=== PATIENT | male | born 1950 | race Caucasian/White ===

== ENCOUNTER 2020-06-01 16:25 | Emergency (ER) | payer OTHER, BC ==
[2020-06-01] MEDS ORDERED: FENTANYL CITR 100 MCG/2 ML ONE (17:10)
--- NOTE | 2020-06-01 18:02 | RAD REPORT ---
EXAM DESCRIPTION: CT - Head C Spine Cap Wo Con - 06/01/2020 5:39 pm CLINICAL HISTORY: neck and back pain COMPARISON: None TECHNIQUE: Axial [address] head images were obtained. Axial [address] cervical spine images were obtain ed with sagittal and coronal reconstruction images reviewed. Axial 5 mm images of the chest, abdomen and pelvis were obtained. All CT scans are performed using dose optimization technique as appropriate and may include automated exposure control or mA/KV adjustment according to patient size. FINDINGS: No intracranial hemorrhage, mass or edema. No midline shift or abnormal fluid collection. Mastoid air cells and paranasal sinuses are clear. No skull fracture. Atrophy and chronic ischemic c hanges are minimal. Ventricles are normal in size. Cervical bodies are normal in height. There is very slight retrolisthesis of C5 on C6. Severe C5-6 di sc degenerative change and spurring changes. Degenerative sclerotic changes are present in C5 and C6 abutting the disc level. No fracture or acute bone finding.No other significant disc space narrowing. No prevertebral soft tissue thickening or paraspinal mass.Central canal detail is inherently limited on CT imaging.Facet joint degenerative changes are present causing left foraminal encroachment at C3- 4 and on the right at C4-5. Significant bilateral bony foraminal encroachment at C5-6 where there is also central spinal stenosis. CT chest shows no pneumothorax, pulmonary contusion or pleural fluid collection. No mediastinal hem atoma and the aorta and pulmonary arteries are unremarkable. No chest will mass or abnormal axillary finding. No displaced rib fracture or other significant bony finding. Patient has multiple calcified and noncalcified pleural plaques and small subpleural pulmonary nodules. No one large dominant mass. No acute infiltrate. Patient has very pronounced fatty infiltration of the liver. No acute injury to the liver, spleen, pa ncreas or kidneys. Gallbladder and biliary tree are unremarkable. No acute bowel injury. Urinary blad galilea wall appears thickened but the bladder is too contracted to allow for an accurate assessment. No free air, free fluid or pneumatosis. Small to moderate-sized left inguinal hernia is present. No mass or bulky lymphadenopathy. Degenerative changes are present throughout the thoracic spine with bridging ossification spanning T4 - T11. Advanced degenerative change present at the T11-12 disc level. 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 There is minimal anterior subluxation of L5 with advanced L5-S1 degenerative d isc disease. Acute fracture is present in the superior endplate of L1. Approximately 20 degree wedge compression deformity is present. The posterior wall height is preserved. No posterior wall or salon designer ior element involvement identified. No paraspinal mass. Remaining lumbar vertebrae are normal in heig ht. No sacral ala fracture identified. Facet joint degenerative changes are present. No sacrum or coccyx abnormality. IMPRESSION: Approximately 20% acute wedge compression fracture of the L1 vertebral body. Posterior w all height is preserved. No posterior wall, pedicle or posterior element involvement identified. No hemorrhage, edema or acute intracranial finding identifiable. Advanced cervical spine degenerative changes are present as detailed. No fracture or acute cervical s pine finding seen. No acute traumatic injury to the chest. Calcified and noncalcified pleural plaques and small subpleur al pulmonary nodules can be monitored with re-evaluation in 6 months. No acute traumatic injury to the solid abdominal visceral or bowel. Patient has diffuse fatty infiltr ation of the liver. Additional nonacute findings detailed in the body of the report.
--- NOTE | 2020-06-01 18:41 | ER ---
Nurse's Notes [facility] Name: Marcus Collado Age: 69 yrs Sex: Male : 1950 Arrival Date: 06/01/2020 Time: 16:28 Bed 8 Private MD: Diagnosis: Wedge compression fracture of first lumbar vertebra;Pain in elbow-bilateral from fall;Pain in right wrist-from fall Presentation: 06/01 16:37 Chief complaint: Patient states: Fell 9 feet off of step ladder onto buttocks 45 ss minutes ago. Pt reports he fell onto plywood floor. C/o bilateral elbow pain, upper back pain and pain to buttocks. PT was ambulatory to ER. Care prior to arrival: None. Mechanism of Injury: Fall from ladder approximately 9 feet. Trauma event details: Injury occurred in the [facility], Injury occurred: at home. Injury occurred: June 01, 2020. 16:37 Acuity: JAMISON 2 ss 16:37 Method Of Arrival: Ambulatory ss 16:40 Coronavirus screen: Client denies travel out of the [place] in the last 14 days. At this ss time, the client does not indicate any symptoms associated with coronavirus-19. Ebola Screen: Patient denies exposure to infectious person. Patient denies travel to an Ebola-affected area in the 21 days before illness onset. Initial Sepsis Screen: Does the patient meet any 2 criteria? No. Patient's initial sepsis screen is negative. Does the patient have a suspected source of infection? No. Patient's initial sepsis screen is negative. Risk Assessment: Do you want to hurt yourself or someone else? Patient reports no desire to harm self or others. Onset of symptoms was June 01, 2020. Trauma Activation: Not Applicable Physician: ED Physician; Name: ; Notified At: ; Arrived At: Physician: General Surgeon; Name: ; Notified At: ; Arrived At: Physician: Radiology; Name: ; Notified At: ; Arrived At: Physician: Respiratory; Name: ; Notified At: ; Arrived At: Physician: Lab; Name: ; Notified At: ; Arrived At: Historical: - Allergies: 16:41 PENICILLINS; ss - Immunization history: Last tetanus immunization: unknown. - Social history:: Smoking status: Patient denies any tobacco usage or history of. Screenin:37 Abuse screen: Denies threats or abuse. Denies injuries from another. Tuberculosis ss screening: Never had TB. 17:20 Nutritional screening: No deficits noted. Fall Risk None identified. sv Primary Survey: 16:37 NO uncontrolled hemorrhage observed. A: The patient is alert. Airway: patent. ss Breathing/Chest: Respiratory pattern: regular, Respiratory effort: spontaneous, unlabored, Breath sounds: clear, bilaterally. Chest inspection: symmetrical rise and fall of the chest. Circulation: Pulses: palpable right radial artery, right posterior tibial artery, left radial artery and left posterior tibial artery. Skin color: pink, Skin temperature: warm. Disability Alert. Exposure/Environment: There is no evidence of uncontrolled external bleeding. 17:21 Reassessment Airway Airway Patent Oxygen No O2 Oral cavity Clear Trachea Midline sv Breathing/Chest Respiratory pattern Regular Respiratory effort Spontaneous Unlabored Chest inspection Symmetrical Circulation Pulses Palpable Color Sunsites Temperature Warm Dry Disability Alert. Secondary Survey: 17:00 HEENT: No deficits noted. Gastrointestinal: No deficits noted. : No deficits noted. hb Musculoskeletal: Reports pain in bilateral elbows, right wrist, back, coccyx. 17:00 HEENT: No deficits noted. Gastrointestinal: No deficits noted. : No deficits noted. sv No signs and/or symptoms were reported regarding the genitourinary system. Musculoskeletal: Reports pain in dorsal aspect of right wrist and left and right elbow. Assessment: 17:02 General: Appears in no apparent distress. uncomfortable, Behavior is calm, cooperative. hb Pain: Pain currently is 9 out of 10 on a pain scale. Neuro: Level of Consciousness is awake, alert, obeys commands, Oriented to person, place, time, situation. EENT: No signs and/or symptoms were reported regarding the EENT system. Cardiovascular: Capillary refill < 3 seconds Patient's skin is warm and dry. Pulses are 3+ in right radial artery, right dorsalis pedis artery, left radial artery and left dorsalis pedis artery. Respiratory: Airway is patent Respiratory effort is even, unlabored, Respiratory pattern is regular, symmetrical, Breath sounds are clear bilaterally. GI: No deficits noted. No signs and/or symptoms were reported involving the gastrointestinal system. : No deficits noted. No signs and/or symptoms were reported regarding the genitourinary system. Derm: Skin is pink, warm \T\ dry. Musculoskeletal: Reports pain in bilateral elbows, right wrist, back, and coccyx. 18:00 Reassessment: Patient appears in no apparent distress at this time. Patient and/or hb family updated on plan of care and expected duration. Pain level reassessed. Patient is alert, oriented x 3, equal unlabored respirations, skin warm/dry/pink. Vital Signs: 16:37 BP 150 / 86; Pulse 78; Resp 17; Temp 98.6(TE); Pulse Ox 99% on R/A; Weight 90.72 kg; ss Height 5 ft. 11 in. (180.34 cm); Pain 9/10; 17:21 BP 139 / 91; Pulse 78; Resp 15; Pulse Ox 100% on R/A; hb 17:45 BP 132 / 94; Pulse 68; Resp 16; Pulse Ox 100% ; sv 18:30 BP 132 / 85; Pulse 71; Resp 16; Pulse Ox 100% ; sv 16:37 Body Mass Index 27.89 (90.72 kg, 180.34 cm) ss [place] Coma Score: 16:37 Eye Response: spontaneous(4). Verbal Response: oriented(5). Motor Response: obeys ss commands(6). Total: 15. Trauma Score (Adult): 16:37 Eye Response: spontaneous(1); Verbal Response: oriented(1); Motor Response: obeys ss commands(2); Systolic BP: > 89 mm Hg(4); Respiratory Rate: 10 to 29 per min(4); [place] Score: 15; Trauma Score: 12 17:21 Eye Response: spontaneous(1); Verbal Response: oriented(1); Motor Response: obeys hb commands(2); Systolic BP: > 89 mm Hg(4); Respiratory Rate: 10 to 29 per min(4); [place] Score: 15; Trauma Score: 12 18:15 Eye Response: spontaneous(1); Verbal Response: oriented(1); Motor Response: obeys hb commands(2); Systolic BP: > 89 mm Hg(4); Respiratory Rate: 10 to 29 per min(4); [place] Score: 15; Trauma Score: 12 ED Course: 16:28 Patient arrived in ED. ds1 16:37 Patient has correct armband on for positive identification. Bed in low position. Call ss light in reach. 16:37 Patient maintains SpO2 saturation greater than 95% on room air. ss 16:39 Triage completed. ss 16:41 Arm band placed on right wrist. ss 16:44 Oleksandr Camarillo PA is PHCP. cp 16:44 Byron Morales MD is Attending Physician. cp 16:50 Thermoregulation: warm blanket given to patient. hb 16:56 Laney Kelly RN is Primary Nurse. sv 17:04 Inserted saline lock: 20 gauge in left antecubital area, using aseptic technique. Blood sv collected. Flushed left antecubital with 5 ml normal saline. 17:[address] Scan. sv 17:39 CT Traumagram (Head C Spine CAP wo con): fall from ladder In Process Unspecified. EDMS 18:25 XRAY Elbow LEFT 3 view In Process Unspecified. EDMS 18:25 XRAY Elbow RIGHT 3 view In Process Unspecified. EDMS 18:25 XRAY Wrist RIGHT 3 view In Process Unspecified. EDMS 18:40 Ryan Conrad MD is Referral Physician. cp 19:10 Primary Nurse role handed off by Laney Kelly RN sv Administered Medications: 16:57 CANCELLED (Physician Discretion): Hydrocodone-Acetaminophen (7.5 mg-325 mg) 1 tabs PO sv once; RASS on ADMIN: Combtv4, Very Agttd3, Agttd2, Rstlss1, AlertClm0, Drwsy-1, Lt Sdtn-2, Mod Sdtn-3, Dp Sdtn-4, UnArsble-5 17:04 Drug: fentaNYL (PF) 25 mcg {Note: rass1.} Route: IVP; Site: left antecubital; sv 18:00 Follow up: Response: No adverse reaction; RASS: Alert and Calm (0) sv 18:42 Drug: HYDROcodone-acetaminophen 10 mg-325 mg 1 tabs Route: PO; hb Intake: 17:00 PO: 0ml; Total: 0ml. hb Outcome: 18:41 Discharge ordered by MD. cp 19:22 Patient left the ED. bb Signatures: Dispatcher [employer] EDMS Laney Kelly RN RN Jany Quesada ds1 Angi Marino RN RN bb Smirch, Shelby, RN RN ss Page, Corey, PA PA cp Baxter, Heather, RN RN hb Corrections: (The following items were deleted from the chart) 17:05 17:04 fentaNYL (PF) 25 mcg IVP in left antecubital sv sv
--- NOTE | 2020-06-01 18:41 | EDPHYS ---
Physician Documentation [facility] Name: Marcus Collado Age: 69 yrs Sex: Male : 1950 Arrival Date: 06/01/2020 Time: 16:28 Bed 8 Private MD: ED Physician Byron Morales HPI: 06/01 17:11 This 69 yrs old Male presents to ER via Ambulatory with complaints of Fall cp Injury - 10 Ft. 17:11 Details of fall: The patient fell from a height, from a ladder, approximately 10 feet, cp and struck wood glendy. Onset: The symptoms/episode began/occurred 1 hour(s) ago. Associated injuries: The patient sustained neck injury, pain, upper back injury, pain, injury to the low back, pain. Patient denies striking head. Reports fall from ladder directly onto buttocks onto wooden floor. Reports striking bilateral elbows on floor. Historical: - Allergies: 16:41 PENICILLINS; ss - Immunization history: Last tetanus immunization: unknown. - Social history:: Smoking status: Patient denies any tobacco usage or history of. ROS: 17:13 Constitutional: Negative for fever. cp 17:13 Neck: Positive for pain with movement, pain at rest, tenderness. 17:13 Respiratory: Negative for shortness of breath, wheezing. 17:13 Abdomen/GI: Negative for abdominal pain, nausea, vomiting, and diarrhea. 17:13 Back: Positive for pain at rest, pain with movement, of the thoracic area and lumbar area. 17:13 MS/extremity: Positive for pain, of the right elbow and right wrist and left elbow, Negative for decreased range of motion, deformity, paresthesias. 17:13 Neuro: Negative for altered mental status, headache, loss of consciousness, syncope. 17:13 All other systems are negative. Exam: 17:14 Head/Face: Normocephalic, atraumatic. cp 17:14 Constitutional: The patient appears in no acute distress, alert, awake, non-diaphoretic, non-toxic, well developed, well nourished, uncomfortable. 17:14 Eyes: Periorbital structures: appear normal, Conjunctiva: normal, no exudate, no injection, Sclera: no appreciated abnormality, Lids and lashes: appear normal, bilaterally. 17:14 ENT: External ear(s): are unremarkable, Nose: is normal, Mouth: Lips: moist, Oral mucosa: moist, Posterior pharynx: is normal, airway is patent, no erythema, no exudate. 17:14 Neck: C-spine: C-collar placed in ED. 17:14 Chest/axilla: Inspection: normal, Palpation: is normal, no crepitus, no tenderness. 17:14 Cardiovascular: Rate: normal, Rhythm: regular. 17:14 Respiratory: the patient does not display signs of respiratory distress, Respirations: normal, no use of accessory muscles, no retractions, labored breathing, is not present, Breath sounds: are clear throughout, no decreased breath sounds. 17:14 Abdomen/GI: Inspection: abdomen appears normal, Palpation: abdomen is soft and non-tender, in all quadrants. 17:14 Back: pain, that is moderate, of the thoracic area and lumbar area, ROM is painful, with all movement, Straight leg raises: of both lower extremities does not illicit pain. 17:15 Musculoskeletal/extremity: Extremities: grossly normal except: noted in the right cp elbow: pain, tenderness, There is no evidence of decreased ROM, deformity, noted in the right wrist: pain, tenderness, no evidence of decreased ROM, deformity, noted in the left elbow: pain, tenderness, no evidence of decreased ROM, deformity. 17:15 Neuro: Orientation: to person, place \T\ time. Mentation: is normal, Motor: moves all fours, strength is normal, Sensation: is normal. Vital Signs: 16:37 BP 150 / 86; Pulse 78; Resp 17; Temp 98.6(TE); Pulse Ox 99% on R/A; Weight 90.72 kg; ss Height 5 ft. 11 in. (180.34 cm); Pain 9/10; 17:21 BP 139 / 91; Pulse 78; Resp 15; Pulse Ox 100% on R/A; hb 17:45 BP 132 / 94; Pulse 68; Resp 16; Pulse Ox 100% ; sv 18:30 BP 132 / 85; Pulse 71; Resp 16; Pulse Ox 100% ; sv 16:37 Body Mass Index 27.89 (90.72 kg, 180.34 cm) [place] Coma Score: 16:37 Eye Response: spontaneous(4). Verbal Response: oriented(5). Motor Response: obeys ss commands(6). Total: 15. Trauma Score (Adult): 16:37 Eye Response: spontaneous(1); Verbal Response: oriented(1); Motor Response: obeys ss commands(2); Systolic BP: > 89 mm Hg(4); Respiratory Rate: 10 to 29 per min(4); [place] Score: 15; Trauma Score: 12 17:21 Eye Response: spontaneous(1); Verbal Response: oriented(1); Motor Response: obeys hb commands(2); Systolic BP: > 89 mm Hg(4); Respiratory Rate: 10 to 29 per min(4); [place] Score: 15; Trauma Score: 12 18:15 Eye Response: spontaneous(1); Verbal Response: oriented(1); Motor Response: obeys hb commands(2); Systolic BP: > 89 mm Hg(4); Respiratory Rate: 10 to 29 per min(4); [place] Score: 15; Trauma Score: 12 MDM: 16:50 Patient medically screened. cp 17:00 Differential diagnosis: closed head injury, contusion, fracture, multiple trauma. cp 18:40 Data reviewed: vital signs, nurses notes, radiologic studies, CT scan, plain films, I cp have discussed the patient's presentation/case with the attending Emergency Department Physician; and as a result, I will discharge patient. 18:41 Counseling: I had a detailed discussion with the patient and/or guardian regarding: the cp historical points, exam findings, and any diagnostic results supporting the discharge/admit diagnosis, radiology results, to return to the emergency department if symptoms worsen or persist or if there are any questions or concerns that arise at home. 18:41 Response to treatment: Pain improved. Patient ambulatory in ED. Will discharge to home cp for continued monitoring. 06/01 16:57 Order name: CT Traumagram (Head C Spine CAP wo con): fall from ladder; Complete Time: cp 18:17 06/01 17:03 Order name: XRAY Elbow LEFT 3 view cp 06/01 17:03 Order name: XRAY Elbow RIGHT 3 view cp 06/01 17:03 Order name: XRAY Wrist RIGHT 3 view cp 06/01 18:42 Order name: Sling: left elbow pain; Complete Time: 19:20 cp 06/01 18:42 Order name: Splint - Wrist: right; Complete Time: 19:20 cp Administered Medications: 16:57 CANCELLED (Physician Discretion): Hydrocodone-Acetaminophen (7.5 mg-325 mg) 1 tabs PO sv once; RASS on ADMIN: Combtv4, Very Agttd3, Agttd2, Rstlss1, AlertClm0, Drwsy-1, Lt Sdtn-2, Mod Sdtn-3, Dp Sdtn-4, UnArsble-5 17:04 Drug: fentaNYL (PF) 25 mcg {Note: rass1.} Route: IVP; Site: left antecubital; sv 18:00 Follow up: Response: No adverse reaction; RASS: Alert and Calm (0) sv 18:42 Drug: HYDROcodone-acetaminophen 10 mg-325 mg 1 tabs Route: PO; hb Disposition: 19:00 Chart complete. cp Disposition: 06/01/20 18:41 Discharged to Home. Impression: Wedge compression fracture of first lumbar vertebra, Pain in elbow - bilateral from fall, Pain in right wrist - from fall. - Condition is Stable. - Discharge Instructions: Joint Pain, Spinal Compression Fracture, Wrist Pain. - Prescriptions for Tylenol- Codeine #3 300-30 mg Oral Tablet - take 2 tablet by ORAL route every 6 hours As needed; 30 tablet. - Medication Reconciliation Form, Thank You Letter, Antibiotic Education, Prescription Opioid Use form. - Follow up: Private Physician; When: 2 - 3 days; Reason: Recheck today's complaints. Follow up: Ryan Conrad MD; When: 2 - 3 days; Reason: lumbar compression fracture. - Problem is new. - Symptoms have improved. Signatures: Dispatcher [employer] Laney Castro RN RN sv Ballard, Brenda, RN RN bb Smirch, Shelby, RN RN ss Page, Corey, PA PA cp Zayra Barnes RN RN hb Corrections: (The following items were deleted from the chart) 16:57 16:53 Hydrocodone-Acetaminophen (7.5 mg-325 mg) 1 tabs PO once; RASS on ADMIN: Combtv4, sv Very Agttd3, Agttd2, Rstlss1, AlertClm0, Drwsy-1, Lt Sdtn-2, Mod Sdtn-3, Dp Sdtn-4, UnArsble-5 ordered. cp 19:22 18:41 06/01/2020 18:41 Discharged to Home. Impression: Wedge compression fracture of bb first lumbar vertebra; Pain in elbow - bilateral from fall; Pain in right wrist - from fall. Condition is Stable. Forms are Medication Reconciliation Form, Thank You Letter, Antibiotic Education, Prescription Opioid Use. Follow up: Private Physician; When: 2 - 3 days; Reason: Recheck today's complaints. Follow up: Ryan Conrad; When: 2 - 3 days; Reason: lumbar compression fracture. Problem is new. Symptoms have improved. cp
[2020-06-01] MEDS ORDERED: HYDROCODONE/APAP 10/325 TAB ONE (18:45)
--- NOTE | 2020-06-01 20:05 | RAD REPORT ---
EXAM DESCRIPTION: RAD - Elbow Right 3 View - 06/01/2020 6:26 pm CLINICAL HISTORY: fall off ladder;Pain COMPARISON: No comparisonsNone. FINDINGS: No fracture is identified and no elevated posterior fat pad. There is no dislocation or pe riosteal reaction noted. No foreign body or other soft tissue abnormality. No other significant findi ng. IMPRESSION: Negative right elbow examination.
--- NOTE | 2020-06-01 20:07 | RAD REPORT ---
EXAM DESCRIPTION: RAD - Wrist Right 3 View - 06/01/2020 6:26 pm CLINICAL HISTORY: fall off ladder;Pain COMPARISON: No comparisons FINDINGS: No gross fracture deformity seen. On the lateral view there is a 2 mm bone density that ma y be a small avulsion from the lunate bone or triquetrum. Long-term significance is doubtful. Underly ing degenerative changes minimal. There is no dislocation or periosteal reaction noted. No foreign neha dy or other soft tissue abnormality. IMPRESSION: No gross fracture deformity present. Patient may have a small 2 mm avulsion from the whitney nathaniel margin first carpal row.
--- NOTE | 2020-06-01 20:07 | RAD REPORT ---
EXAM DESCRIPTION: RAD - Elbow Left 3 View - 06/01/2020 6:26 pm CLINICAL HISTORY: fall off ladder;Pain COMPARISON: None. FINDINGS: No fracture is identified and no elevated posterior fat pad. There is no dislocation or pe riosteal reaction noted. No foreign body or other soft tissue abnormality. IMPRESSION: Negative left elbow examination.
== END 2020-06-01 19:22 | disposition home or self-care (01) ==
LOC: ER 16:25
DX: S32.010A Wedge compression fracture of first lumbar vertebra, initial encounter for closed fracture (principal); M25.531 Pain in right wrist; M25.522 Pain in left elbow; M25.521 Pain in right elbow; W11.XXXA Fall on and from ladder, initial encounter; Y93.9 Activity, unspecified; Y92.9 Unspecified place or not applicable; Z88.0 Allergy status to penicillin
CPT/HCPCS: 70450; 71250; 72125; 73080 ×2; 73110; J3010; 96374; 99284